=== PATIENT | male | born 1930 | race Caucasian/White ===

== ENCOUNTER 2016-10-02 18:21 | Inpatient (IN) | payer MEDICARE ==
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
[2016-10-03 00:17] LABS: CREATININE 1.41 MG/DL (0.70-1.30)
[2016-10-03 05:46] LABS: BASOPHILS 0.2 %; BASOPHILS ABSOLUTE 0.04 10/3/uL (0.0-0.16); EOSINOPHILS 0.7 %; EOSINOPHILS ABSOLUTE 0.13 10/3/uL (0.0-0.53); HEMATOCRIT 27.3 % (40.0-51.0); HEMOGLOBIN 8.3 g/dL (13.6-17.8); IMMATURE GRANULOCYTES 2.6 %; IMMATURE GRANULOCYTES ABSOLUTE 0.46 10/3/uL (0.0-0.11); LYMPHOCYTES 8.3 %; LYMPHOCYTES ABSOLUTE 1.44 10/3/uL (0.67-4.30); MEAN CORPUS HGB CONC 30.4 g/dL (32.0-36.0); MEAN CORPUSCULAR HEMOGLOB 26.9 pg (26.0-34.0); MEAN CORPUSCULAR VOLUME 88.6 fL (80-100); MEAN PLATELET VOLUME 8.8 fL (9.2-13.0); MONOCYTES 8.5 %; MONOCYTES ABSOLUTE 1.49 10/3/uL (0.21-1.20); NEUTROPHILS 79.7 %; NEUTROPHILS ABSOLUTE 13.87 10/3/uL (2.02-8.40); PLATELET COUNT 246 10/3/uL (150-400); RBC DISTRIBUTION WIDTH 22.7 % (12.0-16.0); RED CELL COUNT 3.08 10/6/uL (4.7-6.1); WHITE BLOOD CELLS 17.4 10/3/uL (4.5-10.5)
[2016-10-03 05:47] LABS: MANUAL DIFF NO %
[2016-10-03 06:10] LABS: PLATELET ESTIMATE ADQ (ADEQUATE)
[2016-10-03 06:11] LABS: HYPOCHROMIA 1+ (3-10/OIF) (0-2/OIF)
[2016-10-03 06:13] LABS: B NATRIURETIC PEPTIDE (BNP) 200.8 PG/ML (< 100.0)
[2016-10-03 06:44] LABS: BUN (BLOOD UREA NITROGEN) 47 MG/DL (6-23); CALCIUM, SERUM 8.5 MG/DL (8.5-10.4); CHLORIDE, SERUM 121 MMOL/L (96-112); CO2 (CARBON DIOXIDE) 17 MMOL/L (24-34); CREATININE 1.36 MG/DL (0.70-1.30); GFR AFRICAN AMERICAN 53 ML/MIN (>=60); GFR NON AFRICAN AMERICAN 46 ML/MIN (>=60); GLUCOSE, SERUM 74 MG/DL (60-99); POTASSIUM, SERUM 4.1 MMOL/L (3.5-5.3); SODIUM, SERUM 151 MMOL/L (135-148)
[2016-10-03 06:45] LABS: FOLATE 42.4 NG/ML (>5.2)
[2016-10-03 06:57] LABS: PROCALCITONIN 0.18 ng/mL (<0.5)
[2016-10-03 08:07] LABS: ASCORBIC ACID (UR NOT ORDER) NEG (NEG); BILIRUBIN, URINE NEGATIVE (NEG); KETONE, URINE TRACE MG/DL (NEG); LEUKOCYTE ESTERASE(NOT OR LARGE (NEG); WBC (NOT ORDERED) (RFLEX) 35 (0-5)
[2016-10-03 11:28] LABS: GLYCOHEMOGLOBIN (HbA1c) 8.1 % (4.7-6.1)
[2016-10-03 13:18] LABS: ALLENS TEST Pos; BE (BASE EXCESS) -8.9 MEQ/L (0 +/- 2.5); CARBOXYHEMOGLOBIN 1.7 % (0-3); HCO3 (ACTUAL BICARBONATE) 14.4 MEQ/L (23-27); HEMOBLOGIN CONTENT 8.9 G/DL (14-18); INSTRUMENT SERIAL # 8083; O2 CONTENT 11.6 VOL% (18-24); PCO2 (CO2 TENSION) 23 MMHG (35-45); PO2 (O2 TENSION) 70 MMHG (79-93); SAMPLE Arterial; pH 7.41 (7.37-7.43)
[2016-10-03] MEDS ORDERED: P10 PO (13:35)
[2016-10-03] MEDS ORDERED: PRILO PO (13:35)
[2016-10-03] MEDS ORDERED: LOTE40 PO (13:35)
[2016-10-03] MEDS ORDERED: L20 PO (13:35)
[2016-10-03] MEDS ORDERED: NORV5 PO (13:35)
[2016-10-03] MEDS ORDERED: ASAB PO (13:36)
[2016-10-03] MEDS ORDERED: CALTRA600D PO (13:36)
[2016-10-03] MEDS ORDERED: K-TABS10 MEQ PO (13:36)
[2016-10-03] MEDS ORDERED: FOLIC ACID800 MCG PO (13:36)
[2016-10-03] MEDS ORDERED: FLOMAX4 PO (13:37)
[2016-10-03] MEDS ORDERED: PROSCAR5 PO (13:37)
[2016-10-03] MEDS ORDERED: SILVADENE CREAM 1% TOP (13:38)
[2016-10-04 06:06] LABS: BASOPHILS 0.3 %; BASOPHILS ABSOLUTE 0.04 10/3/uL (0.0-0.16); EOSINOPHILS ABSOLUTE 0.37 10/3/uL (0.0-0.53); HEMATOCRIT 25.7 % (40.0-51.0); IMMATURE GRANULOCYTES 3.4 %; IMMATURE GRANULOCYTES ABSOLUTE 0.42 10/3/uL (0.0-0.11); LYMPHOCYTES 10.8 %; LYMPHOCYTES ABSOLUTE 1.32 10/3/uL (0.67-4.30); MEAN CORPUS HGB CONC 31.1 g/dL (32.0-36.0); MEAN CORPUSCULAR HEMOGLOB 27.5 pg (26.0-34.0); MEAN CORPUSCULAR VOLUME 88.3 fL (80-100); MEAN PLATELET VOLUME 8.5 fL (9.2-13.0); MONOCYTES 8.6 %; MONOCYTES ABSOLUTE 1.05 10/3/uL (0.21-1.20); NEUTROPHILS 73.9 %; NEUTROPHILS ABSOLUTE 9.01 10/3/uL (2.02-8.40); PLATELET COUNT 235 10/3/uL (150-400); RED CELL COUNT 2.91 10/6/uL (4.7-6.1); WHITE BLOOD CELLS 12.2 10/3/uL (4.5-10.5)
[2016-10-04 06:07] LABS: MANUAL DIFF NO %
[2016-10-04 06:23] LABS: A/G RATIO 0.5 (0.7-1.9); ALBUMIN 1.7 G/DL (3.5-5.0); ALKALINE PHOSPHATASE 61 U/L (45-117); BUN (BLOOD UREA NITROGEN) 46 MG/DL (6-23); CALCIUM, SERUM 8.4 MG/DL (8.5-10.4); CHLORIDE, SERUM 121 MMOL/L (96-112); CO2 (CARBON DIOXIDE) 18 MMOL/L (24-34); CREATININE 1.36 MG/DL (0.70-1.30); GFR AFRICAN AMERICAN 54 ML/MIN (>=60); GFR NON AFRICAN AMERICAN 46 ML/MIN (>=60); GLOBULIN 3.5 G/DL (2.5-4.1); POTASSIUM, SERUM 3.8 MMOL/L (3.5-5.3); SGOT(AST) 28 U/L (5-40); SGPT(ALT) 29 U/L (5-65); SODIUM, SERUM 152 MMOL/L (135-148); TOTAL BILIRUBIN 0.7 MG/DL (0-1.2); TOTAL PROTEIN 5.2 G/DL (6.0-8.5)
[2016-10-04 06:25] LABS: GLUCOSE, SERUM 134 MG/DL (60-99)
[2016-10-04 07:08] LABS: PLATELET ESTIMATE ADQ (ADEQUATE)
[2016-10-04 07:09] LABS: MACROCYTES 1+ (5-10/OIF) (0-5/OIF); MICROCYTES 1+ (5-10/OIF) (0-5/OIF)
[2016-10-04 07:10] LABS: POLYCHROMASIA 1+ (2-5/OIF) (0-1/OIF)
[2016-10-05 05:37] LABS: CALCIUM, SERUM 8.5 MG/DL (8.5-10.4); CHLORIDE, SERUM 121 MMOL/L (96-112); CO2 (CARBON DIOXIDE) 19 MMOL/L (24-34); CREATININE 1.17 MG/DL (0.70-1.30); GFR AFRICAN AMERICAN 65 ML/MIN (>=60); GFR NON AFRICAN AMERICAN 56 ML/MIN (>=60); GLUCOSE, SERUM 122 MG/DL (60-99); POTASSIUM, SERUM 3.7 MMOL/L (3.5-5.3); SODIUM, SERUM 151 MMOL/L (135-148)
[2016-10-05 05:51] LABS: BUN (BLOOD UREA NITROGEN) 35 MG/DL (6-23)
[2016-10-05 06:12] LABS: BASOPHILS 0.4 %; BASOPHILS ABSOLUTE 0.05 10/3/uL (0.0-0.16); EOSINOPHILS 2.5 %; EOSINOPHILS ABSOLUTE 0.35 10/3/uL (0.0-0.53); HEMATOCRIT 26.6 % (40.0-51.0); HEMOGLOBIN 8.1 g/dL (13.6-17.8); IMMATURE GRANULOCYTES 1.5 %; IMMATURE GRANULOCYTES ABSOLUTE 0.21 10/3/uL (0.0-0.11); LYMPHOCYTES 8.5 %; MEAN CORPUS HGB CONC 30.5 g/dL (32.0-36.0); MEAN CORPUSCULAR HEMOGLOB 27.4 pg (26.0-34.0); MEAN CORPUSCULAR VOLUME 89.9 fL (80-100); MEAN PLATELET VOLUME 8.9 fL (9.2-13.0); MONOCYTES ABSOLUTE 0.99 10/3/uL (0.21-1.20); NEUTROPHILS 80.1 %; NEUTROPHILS ABSOLUTE 11.39 10/3/uL (2.02-8.40); NUCLEATED RED BLOOD CELLS 0.4 /100WBC (0-0); PLATELET COUNT 262 10/3/uL (150-400); RBC DISTRIBUTION WIDTH 23.4 % (12.0-16.0); RED CELL COUNT 2.96 10/6/uL (4.7-6.1); WHITE BLOOD CELLS 14.2 10/3/uL (4.5-10.5)
[2016-10-05 06:15] LABS: MANUAL DIFF NO %
[2016-10-05 06:47] LABS: PLATELET ESTIMATE ADQ (ADEQUATE)
[2016-10-06 05:24] LABS: BUN (BLOOD UREA NITROGEN) 35 MG/DL (6-23); CALCIUM, SERUM 7.9 MG/DL (8.5-10.4); CHLORIDE, SERUM 118 MMOL/L (96-112); CO2 (CARBON DIOXIDE) 19 MMOL/L (24-34); GFR AFRICAN AMERICAN 63 ML/MIN (>=60); GFR NON AFRICAN AMERICAN 54 ML/MIN (>=60); GLUCOSE, SERUM 137 MG/DL (60-99); SODIUM, SERUM 147 MMOL/L (135-148)
[2016-10-06 05:28] LABS: POTASSIUM, SERUM 4.9 MMOL/L (3.5-5.3)
== END 2016-10-06 17:45 | DRG 552 ==
LOC: 1SO 18:21
PROVIDERS: Internal Medicine; Student in an Organized Health Care Education/Training Program
DX: S32.039A Unspecified fracture of third lumbar vertebra, initial encounter for closed fracture (principal); E87.2 Acidosis; E87.0 Hyperosmolality and hypernatremia; F05 Delirium due to known physiological condition; L03.115 Cellulitis of right lower limb; N39.0 Urinary tract infection, site not specified; J98.11 Atelectasis; F03.90 Unspecified dementia, unspecified severity, without behavioral disturbance, psychotic disturbance, mood disturbance, and anxiety; I10 Essential (primary) hypertension; Z66 Do not resuscitate; E11.9 Type 2 diabetes mellitus without complications; D64.9 Anemia, unspecified; B96.1 Klebsiella pneumoniae [K. pneumoniae] as the cause of diseases classified elsewhere; I35.0 Nonrheumatic aortic (valve) stenosis; M06.9 Rheumatoid arthritis, unspecified; I25.10 Atherosclerotic heart disease of native coronary artery without angina pectoris; F17.290 Nicotine dependence, other tobacco product, uncomplicated; W18.30XA Fall on same level, unspecified, initial encounter; Z79.82 Long term (current) use of aspirin; Z79.52 Long term (current) use of systemic steroids; Z79.899 Other long term (current) drug therapy
CPT/HCPCS: 36600; 70450; 71010; 72131; 73590-RT; 80048; 80053; 80202; 81001; 82565; 82607; 82746; 82805; 82962; 83036; 83735; 83880; 84145; 84443; 85025; 85652; 86140; 87040; 87070; 87077; 87086; 87186; 87205; 93005; 94640; 97162-GP; 97166-GO; A9270-GY; C8929; G8978-CM-GP; G8979-CL-GP; G8987-CL-GO; G8988-CK-GO; J1885; J2543; J3370; J3480; J3486; Q9957